=== PATIENT | female | born 1995 | race Caucasian/White ===

== ENCOUNTER 2016-04-04 17:19 | Emergency (ER) | payer OTHER ==
[~2016-04-04] VITALS: Ht 172.7 cm; Wt 99.8 kg
[2016-04-04] MEDS ORDERED: ONDANSETRON HCL 4 MG/2 ML VIAL IV ONE (18:00)
[2016-04-04] MEDS ORDERED: MORPHINE SULFATE 4 MG/ML SYRG IV ONE (18:00)
[2016-04-04] MEDS ORDERED: ETOMIDATE (2MG/ML) 20ML VIAL IV ONE (19:30)
[2016-04-04 20:25] VITALS: BP 128/76
== END 2016-04-04 20:36 | disposition home or self-care (01) ==
LOC: ER 17:37
DX: S83.015A Lateral dislocation of left patella, initial encounter (principal); X50.1XXA Overexertion from prolonged static or awkward postures, initial encounter; Y93.66 Activity, soccer; Y99.8 Other external cause status; Y92.89 Other specified places as the place of occurrence of the external cause
CPT/HCPCS: 27560; 73562; 96374; 96375; 99285; J2270; J2405